=== PATIENT | male | born 1950 | race Caucasian/White ===

== ENCOUNTER 2018-11-03 11:59 | Day surgery (SDC) | payer MEDICARE, MEDICAID ==
[2018-11-03] VITALS (10 sets, daily range): BP systolic 95–133; BP diastolic 56–83
[~2018-11-03] VITALS: Ht 177.8 cm; Wt 139.5 kg
[2018-11-03] MEDS ORDERED: sod bicarbonate 150mEq in D5W 1,150 ML IV ONE (12:15)
[2018-11-03] MEDS ORDERED: diphenhydrAMINE 25mg capsule PO PRN (12:15)
[2018-11-03] MEDS ORDERED: normal saline 1000ml 1,000 ML IV SCH (12:15)
[2018-11-03] MEDS ORDERED: LIDOcaine 1% (10mg/ml)w/preservative injection 20ml MDV ONE (12:19)
[2018-11-03] MEDS ORDERED: iohexol 350 MG/ML 50ML vial IV ONE (12:19)
[2018-11-03] MEDS ORDERED: iohexol 350MG/ML 100ml bottle IV ONE (12:19)
[2018-11-03] MEDS ORDERED: fentaNYL/PF 50MCG/1 ML 2ML syringe ONE (12:19)
[2018-11-03] MEDS ORDERED: midazolam 2 mg/2 ml injection ONE (12:19)
[2018-11-03] MEDS ORDERED: nitroGLYCERIN-Tridil 50MG/D5W 250 ML IV ONE (13:07)
[2018-11-03] MEDS ORDERED: verapamil 2.5 mg/ml inj IV ONE (13:07)
[2018-11-03] MEDS ORDERED: heparin 1,000unit/ml 10ml vial 10 ML ONE (13:08)
[2018-11-03] MEDS ORDERED: ALB0.5UD IH (13:09)
[2018-11-03] MEDS ORDERED: GLU850T PO (13:09)
[2018-11-03] MEDS ORDERED: INSU3INS2 SQ (13:09)
[2018-11-03] MEDS ORDERED: LISI1TAB9 PO (13:09)
[2018-11-03] MEDS ORDERED: CANA100T PO (13:09)
[2018-11-03] MEDS ORDERED: SPIR25TA5 PO (13:09)
[2018-11-03] MEDS ORDERED: APIX5TAB3 PO (13:09)
[2018-11-03] MEDS ORDERED: UMEC1DIS INH (13:09)
[2018-11-03] MEDS ORDERED: METO1TAB40 PO (13:09)
[2018-11-03] MEDS ORDERED: CHOL200012 PO (13:09)
[2018-11-03] MEDS ORDERED: SIMV80TA2 PO (13:09)
[2018-11-03 13:12] LABS: BASOPHILS % (AUTO) 0 % (0-1); EOSINOPHILS % (AUTO) 0 % (0-6); HEMATOCRIT 52.2 % (42.0-52.0); HEMOGLOBIN 17.1 g/dl (14.0-17.9); LYMPHOCYTES # (AUTO) 0.5 X10'3 (1.1-4.8); LYMPHOCYTES % (AUTO) 4.9 % (21-51); MEAN CORPUSCULAR HEMOGLOBIN 29.9 PG (27.0-31.0); MEAN CORPUSCULAR HGB CONC 32.9 % (33.0-36.5); MEAN PLATELET VOLUME 8.8 FL (7.4-10.4); MONOCYTES # (AUTO) 0.3 X10'3 (0-0.9); MONOCYTES % (AUTO) 2.9 % (2-12); NEUTROPHILS # (AUTO) 10.2 X10'3 (1.8-7.7); NEUTROPHILS % (AUTO) 92.2 % (42-75); PLATELET COUNT 247 X10'3 (140-440); RED BLOOD COUNT 5.74 X10'6 (4.70-6.10)
[2018-11-03 13:28] LABS: ALBUMIN 4.3 G/DL (3.4-5.0); ANION GAP 12 (8-16); BLOOD UREA NITROGEN 31 MG/DL (7-18); BUN/CREATININE RATIO 27.7 (5.4-32.0); CALCIUM 10.2 MG/DL (8.5-10.1); CHLORIDE 99 MMOL/L (99-107); CREATININE 1.12 MG/DL (0.60-1.10); GLUCOSE 210 MG/DL (70-104); MAGNESIUM 2.1 MG/DL (1.5-2.4); POTASSIUM 4.3 MMOL/L (3.5-5.1); SODIUM 135 MMOL/L (135-145); TOTAL CARBON DIOXIDE 24.3 MMOL/L (24-32); eGFR 66 ML/MIN
[2018-11-03 13:31] LABS: PROTHROMBIN TIME 10.6 SECONDS (9.0-12.0)
== END 2018-11-03 19:00 | disposition home or self-care (01) ==
LOC: SSTAY O 11:59
PROVIDERS: ATTEND Internal Medicine Cardiovascular Disease
DX: I42.8 Other cardiomyopathies (principal); I47.2 Ventricular tachycardia; I10 Essential (primary) hypertension; I49.8 Other specified cardiac arrhythmias; G47.33 Obstructive sleep apnea (adult) (pediatric); E11.9 Type 2 diabetes mellitus without complications; J44.9 Chronic obstructive pulmonary disease, unspecified; Z79.01 Long term (current) use of anticoagulants; Z79.4 Long term (current) use of insulin; Z79.84 Long term (current) use of oral hypoglycemic drugs; Z88.3 Allergy status to other anti-infective agents; Z88.1 Allergy status to other antibiotic agents; Z91.030 Bee allergy status; Z91.013 Allergy to seafood; Z95.0 Presence of cardiac pacemaker; Z87.442 Personal history of urinary calculi; Z72.89 Other problems related to lifestyle; Z85.46 Personal history of malignant neoplasm of prostate; Z92.21 Personal history of antineoplastic chemotherapy; Z79.899 Other long term (current) drug therapy; Z98.890 Other specified postprocedural states
CPT/HCPCS: 36415; 80048; 82948; 83735; 85025; 85610; 93005; 93458; 99152; 99153; A6257; J1644; J2001; J2250; J3010; J7030; Q9967; A4620; C1769; C1894; J3490

== ENCOUNTER 2019-05-29 09:02 | Day surgery (SDC) | payer MEDICARE, MEDICAID ==
[~2019-05-29] VITALS: Ht 177.8 cm; Wt 146.0 kg
[2019-05-29] VITALS (7 sets, daily range): BP systolic 123–175; BP diastolic 75–92
[~2019-05-29 09:02] MED LIST: ALB0.5UD IH; APIX5TAB3 PO; CANA100T PO; CHOL200012 PO; GLU850T PO; INSU3INS2 SQ; LISI1TAB9 PO; METO1TAB40 PO; SIMV80TA2 PO; SPIR25TA5 PO; UMEC1DIS INH
[2019-05-29] MEDS ORDERED: normal saline 1,000 ML IV SCH (09:30)
[2019-05-29] MEDS ORDERED: diphenhydrAMINE 25mg capsule PO PRN (09:30)
[2019-05-29] MEDS ORDERED: EMPA10TA PO (09:53)
[2019-05-29] MEDS ORDERED: MULT-1074 PO (09:53)
[2019-05-29] MEDS ORDERED: UBID50TA3 PO (09:53)
[2019-05-29] MEDS ORDERED: DESO15CR13 TP (09:53)
[2019-05-29 10:12] LABS: BASOPHILS # (AUTO) 0.1 X10'3 (0-0.2); BASOPHILS % (AUTO) 1.1 % (0-1); EOSINOPHILS # (AUTO) 0.2 X10'3 (0-0.9); EOSINOPHILS % (AUTO) 2.3 % (0-6); HEMOGLOBIN 16.5 g/dl (14.0-17.9); LYMPHOCYTES # (AUTO) 0.7 X10'3 (1.1-4.8); LYMPHOCYTES % (AUTO) 10.6 % (21-51); MEAN CORPUSCULAR HEMOGLOBIN 29.9 PG (27.0-31.0); MEAN CORPUSCULAR VOLUME 90.5 FL (78-98); MEAN PLATELET VOLUME 8.4 FL (7.4-10.4); MONOCYTES # (AUTO) 0.7 X10'3 (0-0.9); MONOCYTES % (AUTO) 9.9 % (2-12); NEUTROPHILS # (AUTO) 5.2 X10'3 (1.8-7.7); NEUTROPHILS % (AUTO) 76.1 % (42-75); PLATELET COUNT 199 X10'3 (140-440); RED BLOOD COUNT 5.53 X10'6 (4.70-6.10); RED CELL DISTRIBUTION WIDTH 14.7 % (11.5-14.5); WHITE BLOOD COUNT 6.8 X10'3 (4.5-11.0)
[2019-05-29 10:23] LABS: ALBUMIN 3.6 G/DL (3.4-5.0); ANION GAP 8 (8-16); BLOOD UREA NITROGEN 19 MG/DL (7-18); BUN/CREATININE RATIO 22.6 (5.4-32.0); CALCIUM 9.1 MG/DL (8.5-10.1); CHLORIDE 106 MMOL/L (99-107); CREATININE 0.84 MG/DL (0.60-1.10); GLUCOSE 121 MG/DL (70-104); MAGNESIUM 1.9 MG/DL (1.5-2.4); POTASSIUM 4.1 MMOL/L (3.5-5.1); SODIUM 139 MMOL/L (135-145); TOTAL CARBON DIOXIDE 24.9 MMOL/L (24-32); eGFR > 90 ML/MIN
[2019-05-29] MEDS ORDERED: LIDOcaine 1% w/EPI 1:100,000 30ml vial (MDV) ONE (10:36)
[2019-05-29] MEDS ORDERED: midazolam 2 mg/2 ml injection ONE ×3 (10:36→11:18)
[2019-05-29] MEDS ORDERED: fentaNYL/PF 50MCG/1 ML 2ML syringe ONE (10:36)
[2019-05-29] MEDS ORDERED: vancomycin 1,000mg inj ONE (10:39)
[2019-05-29] MEDS ORDERED: cefazolin/dext.iso 2gm/100ml 100 ML IV ONE (10:39)
[2019-05-29 10:42] LABS: PARTIAL THROMBOPLASTIN TIME 29 SECONDS (22-32)
[2019-05-29] MEDS ORDERED: hydrocortisone sod succ/PF 100mg/2ml inj. ONE (11:19)
[2019-05-29] MEDS ORDERED: diphenhydrAMINE 50 mg/ml inj ONE (11:19)
== END 2019-05-29 14:26 | disposition home or self-care (01) ==
LOC: SSTAY O 09:02
PROVIDERS: ATTEND Internal Medicine Cardiovascular Disease
DX: T82.190A Other mechanical complication of cardiac electrode, initial encounter (principal); I42.9 Cardiomyopathy, unspecified; I48.0 Paroxysmal atrial fibrillation; Y83.8 Other surgical procedures as the cause of abnormal reaction of the patient, or of later complication, without mention of misadventure at the time of the procedure; Z88.1 Allergy status to other antibiotic agents; Z91.030 Bee allergy status; Z91.041 Radiographic dye allergy status; Z91.013 Allergy to seafood
CPT/HCPCS: 33216; 36415; 71046; 80048; 82948; 83735; 85025; 85610; 85730; 93005; 99152; 99153; C1894; C1898; J0690; J1200; J1720; J2250; J3010; J3370; J3490; J7030; A4565; A4620

== ENCOUNTER 2024-06-08 07:24 | Day surgery (SDC) | payer MEDICARE, MEDICAID ==
[2024-06-08] VITALS (8 sets, daily range): BP systolic 96–130; BP diastolic 39–76; PULSE 60–76; RESP 16; TEMP 97.8; O2SAT 92–98
[~2024-06-08] VITALS: Ht 175.3 cm; Wt 110.1 kg
[~2024-06-08 07:24] MED LIST changes: +DESO15CR13 TP; +EMPA10TA PO; +LISI1TAB49 PO; -LISI1TAB9 PO; +MULT-1074 PO; +UBID50TA3 PO
[2024-06-08 08:17] LABS: EOSINOPHILS # (AUTO) 0.2 X10'3 (0-0.9); HEMOGLOBIN 15.1 g/dl (14.0-17.9); LYMPHOCYTES # (AUTO) 0.9 X10'3 (1.1-4.8); MONOCYTES # (AUTO) 0.6 X10'3 (0-0.9)
[2024-06-08 08:20] LABS: BASOPHILS % (AUTO) 0.6 % (0-1); EOSINOPHILS % (AUTO) 3.1 % (0-6); HEMATOCRIT 45.6 % (42.0-52.0); LYMPHOCYTES % (AUTO) 14.7 % (21-51); MEAN CORPUSCULAR HEMOGLOBIN 30.5 PG (27.0-31.0); MEAN CORPUSCULAR HGB CONC 33.2 g/dL (33.0-36.5); MEAN CORPUSCULAR VOLUME 91.9 FL (78-98); MEAN PLATELET VOLUME 8.4 FL (7.4-10.4); MONOCYTES % (AUTO) 9.6 % (2-12); NEUTROPHILS # (AUTO) 4.2 X10'3 (1.8-7.7); PLATELET COUNT 181 X10'3 (140-440); RED BLOOD COUNT 4.96 X10'6 (4.70-6.10); WHITE BLOOD COUNT 5.8 X10'3 (4.5-11.0)
[2024-06-08] MEDS ORDERED: EZET10TA48 PO (08:26)
[2024-06-08] MEDS ORDERED: SEMA2PEN SQ (08:26)
[2024-06-08] MEDS ORDERED: ATOR40TA72 PO (08:26)
[2024-06-08] MEDS ORDERED: OMEP20CA16 PO (08:26)
[2024-06-08 08:37] LABS: ALBUMIN 3.8 G/DL (3.4-5.0); ANION GAP 10 (8-16); BLOOD UREA NITROGEN 21 MG/DL (7-18); CALCIUM 8.9 MG/DL (8.5-10.1); CHLORIDE 105 MMOL/L (99-107); GLUCOSE 89 MG/DL (70-104); MAGNESIUM 2.1 MG/DL (1.5-2.4); SODIUM 139 MMOL/L (135-145); TOTAL CARBON DIOXIDE 24.5 MMOL/L (24-32); eGFR > 90 ML/MIN
[2024-06-08 08:39] LABS: INR 1.1 INR; PROTHROMBIN TIME 11.1 SECONDS (9.0-12.0)
[2024-06-08] MEDS: vancomycin 1,500 MG in NS 300ml IV soln IV ONE (09:04)
[2024-06-08] MEDS: normal saline 1000ml 1,000 ML IV SCH (09:05)
[2024-06-08] MEDS ORDERED: LIDOcaine 1% w/EPI 1:100,000 inj. MDV 50 ML VIAL ONE (10:02)
[2024-06-08] MEDS ORDERED: midazolam 1 mg/ML 2ml injection ONE ×3 (10:03→11:34)
[2024-06-08] MEDS ORDERED: vancomycin 1,000mg inj ONE (10:03)
[2024-06-08] MEDS ORDERED: fentaNYL/PF 50MCG/1 ML 2ML syringe ONE (10:03)
[2024-06-08] MEDS ORDERED: HYDROcodone/acetaminophen 10/325mg tab PO PRN (12:50)
[2024-06-08] MEDS ORDERED: HYDROcodone/acetaminophen 5mg/325mg tablet PO PRN (12:50)
[2024-06-09] MEDS ORDERED: cefazolin 2gm/D5W 100mL 100 ML IV ONE (05:30)
== END 2024-06-08 14:00 | disposition home or self-care (01) ==
LOC: SSTAY O 07:24
PROVIDERS: ATTEND Internal Medicine Cardiovascular Disease
DX: Z45.010 Encounter for checking and testing of cardiac pacemaker pulse generator [battery] (principal); I44.30 Unspecified atrioventricular block; E66.01 Morbid (severe) obesity due to excess calories; I48.91 Unspecified atrial fibrillation; E78.5 Hyperlipidemia, unspecified; I48.92 Unspecified atrial flutter; G47.30 Sleep apnea, unspecified; I42.8 Other cardiomyopathies; Z98.84 Bariatric surgery status; Z68.35 Body mass index [BMI] 35.0-35.9, adult
CPT/HCPCS: 33228; 36415; 80048; 82948; 83735; 85025; 85610; 93005; 99152; 99153; C1785; J2250; J3010; J3370; J3490; J7030; Z7610